=== PATIENT | female | born 1990 | race Caucasian/White ===

== ENCOUNTER 2024-06-16 05:49 | Inpatient (IN) | payer BC ==
[2024-06-16] MEDS ORDERED: Nalbuphine 10 MG/ML Syringe IVPUSH PRN (05:53)
[2024-06-16] MEDS ORDERED: Ondansetron 4 MG/2 ML SDV IVPUSH PRN (05:53)
[2024-06-16] MEDS ORDERED: Lidocaine 1% 50 ML MDV INJECT PRN (05:53)
[2024-06-16] MEDS ORDERED: Sodium Chloride 0.9% 10 ML Syringe FLUSH PRN (05:53)
[2024-06-16 06:18] LABS: BASOPHILS PERCENT AUTO 0.2 % (0.0-1.0); EOSINOPHILS PERCENT AUTO 0.2 % (0.0-6.0); HEMATOCRIT 38.4 % (37.0-47.0); HEMOGLOBIN 13.2 gm/dl (12.0-16.0); IMMATURE GRAN ABSOLUTE AUTO 0.06 K/mm3 (0.00-0.05); IMMATURE GRAN PERCENT AUTO 0.4 % (0.0-0.4); LYMPHOCYTES ABSOLUTE AUTO 1.2 K/mm3 (1.0-4.8); LYMPHOCYTES PERCENT AUTO 8.6 % (24.0-44.0); MEAN CORPUSCULAR HEMOGLOBIN 30.4 pg (28.0-32.0); MEAN CORPUSCULAR HGB CONC 34.4 g/dl (32.0-36.0); MEAN CORPUSCULAR VOLUME 88.5 fl (83.0-99.0); MEAN PLATELET VOLUME 12.7 fl (9.4-12.3); MONOCYTES ABSOLUTE AUTO 0.5 K/mm3 (0.0-0.8); MONOCYTES PERCENT AUTO 3.7 % (0.0-8.0); NEUTROPHILS ABSOLUTE AUTO 11.9 K/mm3 (1.8-7.7); NEUTROPHILS PERCENT AUTO 86.9 % (41.0-71.0); PLATELET COUNT,PLT 135 K/mm3 (150-400); RED BLOOD CELL COUNT 4.34 M/mm3 (4.10-5.30); WHITE BLOOD CELL COUNT,WBC 13.66 K/mm3 (3.9-11.3)
[2024-06-16] MEDS: Lactated Ringers 1,000 ML IV SCH (06:21)
[2024-06-16] MEDS: Methylergonovine 0.2 MG/1 ML Amp IM ONE (15:23)
[2024-06-16] MEDS: Oxytocin/0.9 % Sodium Chloride 30 UNIT/500 ML BAG IV SCH (15:25)
[2024-06-16] MEDS ORDERED: Docusate Sodium 100 MG Cap PO PRN (15:30)
[2024-06-16] MEDS ORDERED: Acetaminophen 325 MG Tab PO PRN (15:30)
[2024-06-16] MEDS: Benzocaine/Menthol 20%-0.5% Spray 78 GM Cannister TOP PRN (16:11)
[2024-06-16] MEDS: Witch Hazel Medicated Pads 40/Jar TOP PRN (16:11)
[2024-06-16] MEDS: Ibuprofen 600 MG Tab PO SCH (16:12)
[2024-06-16] MEDS: Sodium Chloride 0.9% 10 ML Syringe FLUSH SCH (19:47)
[2024-06-17 13:32] VITALS: BP 121/82; PULSE 68
== END 2024-06-17 17:02 | disposition home or self-care (01) | DRG 560 ==
LOC: JD.OBCHECK 05:49 → JD.OB 05:54 → JD.OBCHECK 05:55 → JD.OB 06:05 → OBSVTOIN 14:43 → JD.OB 18:09
PROVIDERS: ADMIT Obstetrics & Gynecology; ATTEND Obstetrics & Gynecology
PROC: 10E0XZZ Delivery of Products of Conception, External Approach (ICD-10-PCS; principal; 2024-06-16)
DX: O80 Encounter for full-term uncomplicated delivery (principal); Z37.0 Single live birth; Z3A.39 39 weeks gestation of pregnancy; Z88.0 Allergy status to penicillin; Z87.891 Personal history of nicotine dependence
CPT/HCPCS: 36415; 59025; 59409; 85025; 86592; 86850; 86900; 86901; J2210; J7120